=== PATIENT | male | born 1950 | race Caucasian/White ===

== ENCOUNTER 2017-01-02 08:44 | Emergency (ER) | payer MEDICARE ==
[2017-01-02] MEDS ORDERED: NITROGLYCERIN/D5W 50 MG/250 ML ML IV ONE (08:56)
[2017-01-02] MEDS: NITROGLYCERIN 0.4 MG TAB.SUBL SL ONE ×2 (08:57→09:24)
[2017-01-02] MEDS ORDERED: 0.9 % SODIUM CHLORIDE 1,000 ML IV ONE (09:02)
[2017-01-02] MEDS ORDERED: HYDROmorphone HCL/PF 1 MG/ML DISP.SYRIN ONE (09:04)
[2017-01-02] MEDS: ONDANSETRON HCL/PF 4 MG/ 2ML VIAL IVP ONE (09:05)
[2017-01-02] MEDS: HYDROmorphone HCL/PF 1 MG/ML DISP.SYRIN IVP ONE (09:05)
[2017-01-02] MEDS ORDERED: ONDANSETRON HCL/PF 4 MG/ 2ML VIAL ONE (09:06)
[2017-01-02 09:15] LABS: BASOPHILS % 0.2 (0.0-1.5); EOSINOPHILS % 1.2 % (0.0-6.8); MEAN CORPUSCULAR HEMOGLOBIN 30.8 pg (28.0-34.0); MEAN CORPUSCULAR VOLUME 93.4 fl (80.0-100.0); MONOCYTES % 4.1 % (0.0-11.0); NEUTROPHILS # 8.4 # k/uL (1.4-7.7)
[2017-01-02] MEDS: HEPARIN SODIUM 5000 UNIT/1 ML IVP ONE (09:15)
[2017-01-02 09:24] LABS: eGFR (African) > 60; eGFR (Non-African) > 60
[2017-01-02] MEDS: NITROGLYCERIN/D5W 50 MG/250 ML ML IV ONE (09:24)
[2017-01-02] MEDS: 0.9 % SODIUM CHLORIDE 1,000 ML IV SCH (09:25)
--- NOTE | 2017-01-02 09:58 | ED Physician Documentation ---
Chest Pain - HISTORIAN Historian: patient - HPI Stated Complaint: chest pain Chief Complaint: Chest Pain Additional Information: Hx of cad. Stent placed age 54. 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 Onset: hours (1), days ago (1) Timing: sudden onset, still present, worse Duration: constant, sudden-onset Last known Well Date: 01/01/17 Last Known Well Time: 12:00 Last known Well Code/Unknown Code: Unknown Context: activity Severity: severe Quality: pressure, tightness Front/Back of Body, Lg (Color): 1 - chest pain Chest Pain Radiation: no radiation Chest Pain Signs/Symptoms: nausea, diaphoresis, dyspnea, tachypnea Worsened By: nothing Relieved By: nothing Further Comments: no - ROS CONST: recent illness (pneumonia) MS/LYMPH: none GI/: none EYES/ENT: none SKIN/ENDO: none NEURO/PSYCH: none - PAST HX SC risk factors: hyperlipidemia, cardiac disease DVT/PE Risk Factors: recent surgery TAD/AAA risk factors: none Neuro deficit: none GI disease: none Lung disease: COPD Surgeries/Procedures: cardiac stent, other (carotid) Allergies/Adverse Reactions: Allergies Allergy/AdvReac Type Severity Reaction Status Date / Time Penicillins Allergy Verified 01/02/17 09:17 Home Medications: Ambulatory Orders Medication Instructions Recorded Atorvastatin Calcium 40 mg PO 01/02/17 - SOCIAL HX Smoking History: cigarettes Alcohol Use: none Drug Use: none - FAMILY HX Family HX: CAD over 55 - VITAL SIGNS Vital Signs: Vital Signs Temp Pulse Resp BP Pulse Ox 98.3 F 60 22 178/80 92 01/02/17 09:11 01/02/17 09:11 01/02/17 09:11 01/02/17 09:11 01/02/17 09:11 - REVIEWED ASSESSMENTS Nursing Assessment Reviewed: Yes Vitals Reviewed: Yes Progress - Results/Orders Results/Orders: cbc, bmp, trop, ekg ordered - Progress Progress: 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 On presentation, symptoms of squeezing substernal chest pain, diaphoresis, soa, nausea. EKG shows ST elevation V1 - V5. Pt. given sl ntg 0.4 mg x 2 then drip started and titrated from 10 to 20 mcg/min. Heparin given 5000 units ivp and drip at 1000 units/hr. Given 1 mg Dilaudid ivp and 8 units Zofran ivp. Initial Vs: 178/80, 92% ra, 60, 98. By time of transfer 136/76, 99% 4L nc, 98 degrees F, 44-60 HR. Pain down to 3-4/10 from 05/20. Critical Care Note - Critical Care Note Total Time (mins): 25 Comments: STEMI identified by EKG and STEMI protocol initiated, contact made with accepting hospital and pt. transferred to [facility] by ground [facility] ED Results Lab/Radiology - Lab Results Lab Results: Lab Results 01/02/17 01/02/17 01/02/17 09:06 09:00 09:00 WBC 11.40 K/ul K/ul (4.00-12.00) RBC 4.75 M/ul M/ul (3.90-5.20) Hgb 14.6 g/dL g/dL (12.0-18.0) Hct 44.4 % % (37.0-53.0) MCV 93.4 fl fl (80.0-100.0) MCH 30.8 pg pg (28.0-34.0) MCHC 32.9 g/dL g/dL (30.0-36.0) RDW 13.6 % % (11.3-14.3) Plt Count 246 K/mm3 K/mm3 (130-400) Neut % (Auto) 74.1 % % (39.0-79.0) Lymph % (Auto) 19.4 % % (16.0-50.0) [place] % (Auto) 4.1 % % (0.0-11.0) Eos % (Auto) 1.2 % % (0.0-6.8) Baso % (Auto) 0.2 (0.0-1.5) Neut # 8.4 # k/uL H # k/uL (1.4-7.7) Lymph # 2.2 # k/uL # k/uL (0.6-4.0) [place] # 0.5 # k/uL # k/uL (0.0-0.9) Eos # 0.1 # k/uL # k/uL (0.0-0.6) Baso # 0.0 # k/uL # k/uL (0.0-0.5) Reactive Lymphs % 1.1 % % (0.0-5.0) Reactive Lymphs # 0.1 # k/uL # k/uL (0.0-0.8) Sodium 135 mmol/L L mmol/L (136-145) Potassium 4.1 mmol/L mmol/L (3.5-5.0) Chloride 103 mmol/L mmol/L (98-110) Carbon Dioxide 32 mmol/L mmol/L (20-32) BUN 14 mg/dL mg/dL (10-26) Creatinine 0.9 mg/dL mg/dL (0.4-1.5) Estimated Creat Clear 102 Est GFR ( Amer) > 60 (60 - ) Est GFR (Non-Af Amer) > 60 (60 - ) Glucose 187 mg/dL H mg/dL (70-99) Calcium 9.3 mg/dL mg/dL (8.5-10.5) Troponin I < 0.03 ng/mL L ng/mL (0.03-0.06) - Radiology Radiology Impressions: none ordered secondary to time constraints in transfer - Orders Orders: ED Orders Category Date Time Status Remove IV/Saline Lock .PRN Care 01/02/17 09:00 Ordered BMP Routine Lab 01/02/17 Ordered CBC/PLATELET/DIFF Routine Lab 01/02/17 09:06 Ordered TROPONIN I (cTnI) Stat Lab 01/02/17 Ordered HEPARIN SODIUM,PORCINE/D5W @ 60 MLS/HR(500ml) Med 01/02/17 09:03 Ordered Heparin Sodium,Porcine/D5w [Heparin] 20,000 unit in 500 ml IV 1T HYDROmorphone HCL/PF [Dilaudid] Med 01/02/17 09:04 Discontinued 1 mg .ROUTE .STK-MED ONE HYDROmorphone HCL/PF [Dilaudid] Med 01/02/17 09:05 Once 1 mg IVP NOW ONE Heparin Sodium [Heparin] Med 01/02/17 09:03 Once 5,000 unit IVP NOW ONE NORMAL SALINE @ 1000 MLS/HR ( 1000ml) (BOLUS) Med 01/02/17 09:00 Ordered 0.9 % Sodium Chloride [Normal Saline] 1,000 ml IV .Q1H Nitroglycerin [Nitroquick] Med 01/02/17 08:54 Once 0.4 mg SL NOW ONE Nitroglycerin [Nitroquick] Med 01/02/17 09:00 Once 0.4 mg SL NOW ONE Nitroglycerin/D5w [Ntg 0.2 mg/ml in D5w] Med 01/02/17 08:56 Discontinued 50 mg in 250 ml IV .STK-MED Nitroglycerin/D5w [Ntg 0.2 mg/ml in D5w] Med 01/02/17 08:55 Active 50 mg in 250 ml IV 1T Ondansetron HCl/Pf [Zofran 4 mg/2 ml] Med 01/02/17 09:06 Discontinued 4 mg .ROUTE .STK-MED ONE Ondansetron HCl/Pf [Zofran 4 mg/2 ml] Med 01/02/17 09:05 Once 8 mg IVP NOW ONE Oxygen Daily Oxygen 01/02/17 09:15 Ordered EKG WITH COMPARISON Stat Ther 01/02/17 Ordered Chest Pain Physical Exam - EXAM General Appearance: alert, severe distress, hyperventilating EENT: eye inspection normal, ENT inspection normal, pharynx normal, no signs of dehydration, BELLO, no nystagmus, TM's nml Neck: nml inspection Respiratory: chest non-tender, wheezes (slight bases) CVS: reg. rate & rhythm, pulses equal Abdomen: soft, no organomegaly, normal bowel sounds, non-tender Skin: diaphoresis, pallor Extremities: non-tender, normal range of motion, no evidence of injury, no edema Neuro: oriented X3, CN's nml as tested, motor nml, sensation nml Discharge Clincal Impression: STEMI (ST elevation myocardial infarction) Qualifiers: Involved coronary artery: LAD coronary artery Qualified Code(s): I21.02 - ST elevation (STEMI) myocardial infarction involving left anterior descending coronary artery Referrals: Zina Rasmussen, PRN [Primary Care Provider] - 2 Days Home Medications: Ambulatory Orders Atorvastatin Calcium 40 mg PO 01/02/17 Comments: Case discussed with Dr. Rodriguez at [facility] who accepts pt. transfer directly to [facility] Condition: Stable Disposition: 02 XFER [facility] Decision to Admit: NO Decision Time: 09:20
[2017-01-02] MEDS: HEPARIN SODIUM,PORCINE/D5W 20,000 UNIT/500 ML BAG IV ONE (10:00)
[2017-01-02 10:42] VITALS: BP 127/78
== END 2017-01-02 09:30 | disposition short-term general hospital (02) ==
LOC: ED 08:44 → EDSTATUS 08:45 → ED 09:30
DX: I21.02 ST elevation (STEMI) myocardial infarction involving left anterior descending coronary artery (principal)
CPT/HCPCS: 51702; 80048; 84484; 85025; 93005; 96365; 96375; 99285; J1170; J1644; J2405; J3490; J7030; S1016

== ENCOUNTER 2017-04-08 12:20 | Outpatient (CLI) | payer MEDICARE ==
[2017-04-08 14:14] LABS: BASOPHILS % 0.6 (0.0-1.5); EOSINOPHILS % 4.1 % (0.0-6.8); MEAN CORPUSCULAR HEMOGLOBIN 30.9 pg (28.0-34.0); MEAN CORPUSCULAR VOLUME 89.8 fl (80.0-100.0); MONOCYTES % 6.6 % (0.0-11.0); NEUTROPHILS # 5.2 # k/uL (1.4-7.7)
[2017-04-08 14:30] LABS: eGFR (African) > 60; eGFR (Non-African) > 60
== END 2017-04-08 12:21 ==
LOC: LAB 12:20 → CARD 12:21
PROVIDERS: ATTEND Internal Medicine Cardiovascular Disease
DX: I25.10 Atherosclerotic heart disease of native coronary artery without angina pectoris (principal); I25.2 Old myocardial infarction; R53.83 Other fatigue; E78.5 Hyperlipidemia, unspecified; J44.9 Chronic obstructive pulmonary disease, unspecified; F17.210 Nicotine dependence, cigarettes, uncomplicated
CPT/HCPCS: 36415; 80053; 83880; 84443; 85025; G0463

== ENCOUNTER 2017-04-23 12:43 | Outpatient (CLI) | payer MEDICARE ==
[2017-04-23] MEDS ORDERED: SALINE FLUSH 10 ML DISP.SYRIN IVF ONE (13:00)
[2017-04-23] MEDS ORDERED: 0.9 % SODIUM CHLORIDE 250 ML IV.SOLN IV ONE (13:00)
== END 2017-04-23 12:44 ==
LOC: INF 12:43
PROVIDERS: ATTEND Specialist
DX: G54.0 Brachial plexus disorders (principal)
CPT/HCPCS: J2930; J7050; 96365; 96366; S1016

== ENCOUNTER 2017-05-13 10:49 | Outpatient (CLI) | payer MEDICARE | END 2017-05-13 10:50 | LOC: CARD 10:49 | PROVIDERS: ATTEND Internal Medicine Cardiovascular Disease | DX: I25.10 Atherosclerotic heart disease of native coronary artery without angina pectoris (principal); E78.5 Hyperlipidemia, unspecified; J44.9 Chronic obstructive pulmonary disease, unspecified; F17.210 Nicotine dependence, cigarettes, uncomplicated | CPT/HCPCS: G0463 ==

== ENCOUNTER 2017-06-12 07:44 | Outpatient (CLI) | payer MEDICARE ==
[2017-06-12] MEDS ORDERED: SALINE FLUSH 10 ML DISP.SYRIN IVF ONE (08:00)
[2017-06-12] MEDS ORDERED: 0.9 % SODIUM CHLORIDE 100 ML IV.SOLN IV ONE (08:00)
[2017-06-12] MEDS ORDERED: methylPREDNISolone SOD SUCC 1,000 MG in 0.9 % SODIUM CHLORIDE 100 ML IV SCH (09:00)
== END 2017-06-12 07:45 ==
LOC: INF 07:44
PROVIDERS: ATTEND Specialist
DX: M54.12 Radiculopathy, cervical region (principal)
CPT/HCPCS: 96365; 96366; J2930; S1016

== ENCOUNTER 2017-12-23 12:57 | Outpatient (CLI) | payer MEDICARE | END 2017-12-23 13:00 | LOC: CARD 12:57 | PROVIDERS: ATTEND Internal Medicine Cardiovascular Disease | DX: I25.10 Atherosclerotic heart disease of native coronary artery without angina pectoris (principal); E78.00 Pure hypercholesterolemia, unspecified; J44.9 Chronic obstructive pulmonary disease, unspecified; Z72.0 Tobacco use; Z01.810 Encounter for preprocedural cardiovascular examination | CPT/HCPCS: G0463 ==